=== PATIENT | male | born 1990 | race Caucasian/White ===

== ENCOUNTER 2018-12-27 23:27 | Emergency (ER) | payer OTHER ==
[~2018-12-27] VITALS: Ht 177.8 cm; Wt 74.8 kg
--- NOTE | 2018-12-27 23:32 | ED.ADGEN ---
Past History Past Medical History: Anxiety, Pancreatitis Adult General Chief Complaint Chief Complaint ".. I have an anxiety disorder.. and hx of pancreatitis.. but anyway... I had some chest pain starting about 9:45.. but it got worse ... about 1:00.. and thought it was just anxiety.. but it never went away.. so I came in to get checked.... It seems to be worse with deep breaths... 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 Onset of pain 09:45. rated 4 -5 . It A sig got worse until about 1300 hrs it peaked 8/10 and has persisted with deep breaths and cough. Pt. currently rates pain 4/10. Pt. denies any trauma. Patient denies any fever or chills. Patient denies any travel or specific ill contacts. Patient denies history of pulmonary embolisms or DVTs. Patient denies any family history of pulmonary embolisms and DVTs or coagulopathy. Patient does not smoke. Pain is reproducible with deep breaths and cough. Patient has had a previous history of pancreatitis inherited defect. Patient denies any specific history of elevated lipids or cholesterol. Hx ADHD- and take meds for in to help he focus on his school work. Pt. has hx Generalized anxiety disorder. Review of Systems Review of Systems Constitutional: Denies fever or chills [] Eyes: Denies change in visual acuity, redness, or eye pain [] HENT: Denies nasal congestion or sore throat [] Respiratory: Denies cough or shortness of breath [] Cardiovascular: No additional information not addressed in HPI [] GI: Denies abdominal pain, nausea, vomiting, bloody stools or diarrhea [] : Denies dysuria or hematuria [] Musculoskeletal: Denies back pain or joint pain [] Integument: Denies rash or skin lesions [] Neurologic: Denies headache, focal weakness or sensory changes [] Endocrine: Denies polyuria or polydipsia [] All other systems were reviewed and found to be within normal limits, except as documented in this note. Family History Family History Pancreatitis Current Medications Current Medications Current Medications Medications (Trade) Dose Ordered Sig/Chelsey Start Time Stop Time Status Last Admin Dose Admin Aspirin (Children'S Aspirin) 324 mg 1X ONCE 12/28/18 00:00 12/28/18 00:01 DC 12/27/18 23:54 324 MG Ketorolac Tromethamine (Toradol 30mg Vial) 30 mg 1X ONCE 12/28/18 01:15 12/28/18 01:16 DC 12/28/18 01:22 30 MG Lactated Ringer's 1,000 ml @ 1,000 mls/hr Q1H 12/28/18 00:00 12/28/18 00:59 DC 12/27/18 23:54 1,000 MLS/HR Lorazepam (Ativan) 1 mg 1X ONCE 12/28/18 02:00 12/28/18 02:12 DC 12/28/18 01:57 1 MG Methylprednisolone Sodium Succinate (SOLU-Medrol 125MG VIAL) 125 mg 1X ONCE 12/28/18 01:15 12/28/18 01:16 DC 12/28/18 01:22 125 MG Allergies Allergies Allergies Coded Allergies Type Severity Reaction Last Updated Verified nickel Allergy Intermediate 12/27/18 Yes Physical Exam Physical Exam Constitutional: Well developed, well nourished, moderate acute distress, non- toxic appearance. [] HENT: Normocephalic, atraumatic, bilateral external ears normal, oropharynx moist, no oral exudates, nose normal. [] Eyes: PERRLA, EOMI, conjunctiva normal, no discharge. [] Neck: Normal range of motion, no tenderness, supple, no stridor. [] Cardiovascular:Heart rate regular rhythm, no murmur [] Lungs & Thorax: Bilateral breath sounds equal apex on auscultation [] Abdomen: Bowel sounds normal, soft, no tenderness, no masses, no pulsatile masses. [] Skin: Warm, dry, no erythema, no rash. [] Back: No tenderness, no CVA tenderness. [] Extremities: No tenderness, no cyanosis, no clubbing, ROM intact, no edema. [] No cording appreciated Neurologic: Alert and oriented X 3, normal motor function, normal sensory function, no focal deficits noted. [] Psychologic: Affect anxious, judgement normal, mood normal. [] Current Patient Data Vital Signs Vital Signs Date Time Temp Pulse Resp B/P (MAP) Pulse Ox O2 Delivery O2 Flow Rate FiO2 7/21/19 01:29 69 15 126/69 (88) 98 Room Air 12/27/18 23:27 98.6 Lab Results Laboratory Tests Test 12/27/18 23:45 White Blood Count 9.4 x10^3/uL (4.0-11.0) Red Blood Count 5.33 x10^6/uL (4.30-5.70) Hemoglobin 15.9 g/dL (13.0-17.5) Hematocrit 47.0 % (39.0-53.0) Mean Corpuscular Volume 88 fL (79-100) Mean Corpuscular Hemoglobin 30 pg (25-35) Mean Corpuscular Hemoglobin Concent 34 g/dL (31-37) Red Cell Distribution Width 12.8 % (11.5-14.5) Platelet Count 244 x10^3/uL (140-400) Neutrophils (%) (Auto) 59 % (31-73) Lymphocytes (%) (Auto) 29 % (24-48) Monocytes (%) (Auto) 10 % (0-9) H Eosinophils (%) (Auto) 2 % (0-3) Basophils (%) (Auto) 1 % (0-3) Neutrophils # (Auto) 5.5 x10^3uL (1.8-7.7) Lymphocytes # (Auto) 2.7 x10^3/uL (1.0-4.8) Monocytes # (Auto) 0.9 x10^3/uL (0.0-1.1) Eosinophils # (Auto) 0.2 x10^3/uL (0.0-0.7) Basophils # (Auto) 0.1 x10^3/uL (0.0-0.2) Prothrombin Time 10.6 SEC (9.4-11.4) Prothrombin Time INR 1.0 (0.9-1.1) PTT 26 SEC (23-33) D-Dimer (Susan) < 0.19 mg/L (0.00-0.50) Urine Collection Type Unknown Urine Color Candace Urine Clarity Clear Urine pH 7.0 Urine Specific [place] 1.015 Urine Protein Neg (NEG-TRACE) Urine Glucose (UA) Neg mg/dL (NEG) Urine Ketones (Stick) Neg mg/dL (NEG) Urine Blood Neg (NEG) Urine Nitrite Neg (NEG) Urine Bilirubin Neg (NEG) Urine Urobilinogen Dipstick 0.2 mg/dL (0.2 mg/dL) Urine Leukocyte Esterase Neg (NEG) Urine RBC 0 /HPF (0-2) Urine WBC 0 /HPF (0-4) Urine Squamous Epithelial Cells Occ /LPF Urine Bacteria 0 /HPF (0-FEW) Sodium Level 139 mmol/L (136-145) Potassium Level 3.8 mmol/L (3.5-5.1) Chloride Level 102 mmol/L (98-107) Carbon Dioxide Level 29 mmol/L (21-32) Anion Gap 8 (6-14) Blood Urea Nitrogen 16 mg/dL (8-26) Creatinine 1.0 mg/dL (0.7-1.3) Estimated GFR (Cockcroft-Gault) 88.3 Glucose Level 102 mg/dL (70-99) H Calcium Level 9.8 mg/dL (8.5-10.1) Magnesium Level 2.1 mg/dL (1.8-2.4) Total Bilirubin 1.7 mg/dL (0.2-1.0) H Direct Bilirubin 0.3 mg/dL (0.0-0.2) H Aspartate Amino Transferase (AST) 26 U/L (15-37) Alanine Aminotransferase (ALT) 26 U/L (16-63) Alkaline Phosphatase 66 U/L (46-116) Creatine Kinase 75 U/L (39-308) Troponin I Quantitative < 0.017 ng/mL (0-0.055) CF-Zjh-J-Type Natriuretic Peptide 19 pg/mL (0-124) Total Protein 7.3 g/dL (6.4-8.2) Albumin 4.2 g/dL (3.4-5.0) Amylase Level 67 U/L (25-115) Lipase 161 U/L (73-393) Urine Opiates Screen Neg (NEG) Urine Methadone Screen Neg (NEG) Urine Barbiturates Neg (NEG) Urine Phencyclidine Screen Neg (NEG) Urine Amphetamine/Methamphetamine Neg (NEG) Urine Benzodiazepines Screen Neg (NEG) Urine Cocaine Screen Neg (NEG) Urine Cannabinoids Screen Neg (NEG) Urine Ethyl Alcohol Neg (NEG) EKG EKG I interpretation EKG shows a sinus rhythm at 83 bpm. Some nonspecific contour changes anterior septal leads. But no findings acute STEMI with contralateral changes.[] Radiology/Procedures Radiology/Procedures I interpretation of chest xray shows no acute cardiopulmonary findings[] Course & Med Decision Making Course & Med Decision Making Pertinent Labs and Imaging studies reviewed. (See chart for details) Pt to take a daily aspirin. Patient take Tylenol and ibuprofen for pain. Patient follow-up primary care. Patient return if any concerns. Pt. get out pt. stress test. [] Final Impression Final Impression 1. Chest Pain[]-pleuritic- ( Suspect Viral) 2. Mild elevation in monocytes 3. Mild elevation of bilirubin T=1.7, InD 0.3 Dragon Disclaimer Dragon Disclaimer This electronic medical record was generated, in whole or in part, using a voice recognition dictation system. Discharge Summary Visit Information Final Diagnosis Problems Medical Problems: (1) Chest pain Status: Acute (2) Pleurisy Status: Acute Brief Hospital Course Allergies Allergies Coded Allergies Type Severity Reaction Last Updated Verified nickel Allergy Intermediate 12/27/18 Yes Vital Signs Vital Signs Date Time Temp Pulse Resp B/P (MAP) Pulse Ox O2 Delivery O2 Flow Rate FiO2 12/28/18 01:29 69 15 126/69 (88) 98 Room Air 12/27/18 23:27 98.6 Lab Results Laboratory Tests Test 12/27/18 23:45 White Blood Count 9.4 x10^3/uL (4.0-11.0) Red Blood Count 5.33 x10^6/uL (4.30-5.70) Hemoglobin 15.9 g/dL (13.0-17.5) Hematocrit 47.0 % (39.0-53.0) Mean Corpuscular Volume 88 fL (79-100) Mean Corpuscular Hemoglobin 30 pg (25-35) Mean Corpuscular Hemoglobin Concent 34 g/dL (31-37) Red Cell Distribution Width 12.8 % (11.5-14.5) Platelet Count 244 x10^3/uL (140-400) Neutrophils (%) (Auto) 59 % (31-73) Lymphocytes (%) (Auto) 29 % (24-48) Monocytes (%) (Auto) 10 % (0-9) Eosinophils (%) (Auto) 2 % (0-3) Basophils (%) (Auto) 1 % (0-3) Neutrophils # (Auto) 5.5 x10^3uL (1.8-7.7) Lymphocytes # (Auto) 2.7 x10^3/uL (1.0-4.8) Monocytes # (Auto) 0.9 x10^3/uL (0.0-1.1) Eosinophils # (Auto) 0.2 x10^3/uL (0.0-0.7) Basophils # (Auto) 0.1 x10^3/uL (0.0-0.2) Prothrombin Time 10.6 SEC (9.4-11.4) Prothromb Time International Ratio 1.0 (0.9-1.1) Activated Partial Thromboplast Time 26 SEC (23-33) D-Dimer (Susan) < 0.19 mg/L (0.00-0.50) Urine Collection Type Unknown Urine Color Candace Urine Clarity Clear Urine pH 7.0 Urine Specific [place] 1.015 Urine Protein Neg (NEG-TRACE) Urine Glucose (UA) Neg mg/dL (NEG) Urine Ketones (Stick) Neg mg/dL (NEG) Urine Blood Neg (NEG) Urine Nitrite Neg (NEG) Urine Bilirubin Neg (NEG) Urine Urobilinogen Dipstick 0.2 mg/dL (0.2 mg/dL) Urine Leukocyte Esterase Neg (NEG) Urine RBC 0 /HPF (0-2) Urine WBC 0 /HPF (0-4) Urine Squamous Epithelial Cells Occ /LPF Urine Bacteria 0 /HPF (0-FEW) Sodium Level 139 mmol/L (136-145) Potassium Level 3.8 mmol/L (3.5-5.1) Chloride Level 102 mmol/L (98-107) Carbon Dioxide Level 29 mmol/L (21-32) Anion Gap 8 (6-14) Blood Urea Nitrogen 16 mg/dL (8-26) Creatinine 1.0 mg/dL (0.7-1.3) Estimated GFR (Cockcroft-Gault) 88.3 Glucose Level 102 mg/dL (70-99) Calcium Level 9.8 mg/dL (8.5-10.1) Magnesium Level 2.1 mg/dL (1.8-2.4) Total Bilirubin 1.7 mg/dL (0.2-1.0) Direct Bilirubin 0.3 mg/dL (0.0-0.2) Aspartate Amino Transf (AST/SGOT) 26 U/L (15-37) Alanine Aminotransferase (ALT/SGPT) 26 U/L (16-63) Alkaline Phosphatase 66 U/L (46-116) Creatine Kinase 75 U/L (39-308) Troponin I Quantitative < 0.017 ng/mL (0-0.055) CH-Blu-U-Type Natriuretic Peptide 19 pg/mL (0-124) Total Protein 7.3 g/dL (6.4-8.2) Albumin 4.2 g/dL (3.4-5.0) Amylase Level 67 U/L (25-115) Lipase 161 U/L (73-393) Urine Opiates Screen Neg (NEG) Urine Methadone Screen Neg (NEG) Urine Barbiturates Neg (NEG) Urine Phencyclidine Screen Neg (NEG) Urine Amphetamine/Methamphetamine Neg (NEG) Urine Benzodiazepines Screen Neg (NEG) Urine Cocaine Screen Neg (NEG) Urine Cannabinoids Screen Neg (NEG) Urine Ethyl Alcohol Neg (NEG) Brief Hospital Course Mr. Barnes is a 28 old male who presented with pleuritic chest pain all day. Discharge Information Condition at Discharge: Improved, Stable Disposition/Orders: D/C to Home Dischare Medications Current Medications Aspirin (Children'S Aspirin) 324 mg 1X ONCE PO Last administered on 12/27/18at 23:54; Admin Dose 324 MG; Start 12/28/18 at 00:00; Stop 12/28/18 at 00:01; Sta tus DC Lactated Ringer's 1,000 ml @ 1,000 mls/hr Q1H IV Last administered on 12/27/18at 23:54; Admin Dose 1,000 MLS/HR; Start 12/28/18 at 00:00; Stop 12/28/18 at 00:59; Status DC Ketorolac Tromethamine (Toradol 30mg Vial) 30 mg 1X ONCE IV Last administered on 12/28/18at 01:22; Admin Dose 30 MG; Start 12/28/18 at 01:15; Stop 12/28/18 at 01:16; Status DC Methylprednisolone Sodium Succinate (SOLU-Medrol 125MG VIAL) 125 mg 1X ONCE IV Last administered on 12/28/18at 01:22; Admin Dose 125 MG; Start 12/28/18 at 01:15; Stop 12/28/18 at 01:16; Status DC Lorazepam (Ativan) 1 mg 1X ONCE PO Last administered on 12/28/18at 01:57; Admin Dose 1 MG; Start 12/28/18 at 02:00; Stop 12/28/18 at 02:12; Status DC Dragon Disclaimer This chart was dictated in whole or in part using Voice Recognition software in a busy, high-work load, and often noisy Emergency Department environment. It may contain unintended and wholly unrecognized errors or omissions. ANGELINA CRUZ MD Dec 27, 2018 23:32
[2018-12-28] MEDS ORDERED: ASPIRIN 81 MG TAB.CHEW PO ONE
[2018-12-28] MEDS ORDERED: IV RINGERS SOLUTION,LACTATED 1,000 ML IV SCH
[2018-12-28 00:01] LABS: BASO # 0.1 x10^3/uL (0.0-0.2); BASO % 1 % (0-3); EOS # 0.2 x10^3/uL (0.0-0.7); EOS % 2 % (0-3); HEMOGLOBIN 15.9 g/dL (13.0-17.5); LYMPH # 2.7 x10^3/uL (1.0-4.8); LYMPH % 29 % (24-48); MEAN CORPUSCULAR HEMOGLOBIN 30 pg (25-35); MEAN CORPUSCULAR HGB CONC 34 g/dL (31-37); MEAN CORPUSCULAR VOLUME 88 fL (79-100); MONO # 0.9 x10^3/uL (0.0-1.1); MONO % 10 % (0-9); NEUT # 5.5 x10^3uL (1.8-7.7); NEUT % 59 % (31-73); PLATELET COUNT 244 x10^3/uL (140-400); RED BLOOD COUNT 5.33 x10^6/uL (4.30-5.70); RED CELL DISTRIBUTION WIDTH 12.8 % (11.5-14.5); WHITE BLOOD COUNT 9.4 x10^3/uL (4.0-11.0)
[2018-12-28 00:04] LABS: BACTERIA,URINE 0 /HPF (0-FEW); BILIRUBIN,URINE NEG (NEG); CLARITY,URINE CLEAR; COLOR,URINE AMBER; GLUCOSE,URINE NEG (NEG); NITRITE,URINE NEG (NEG); RBC,URINE 0 /HPF (0-2); SQUAMOUS EPITHELIAL CELL,UR OCC /LPF; UROBILINOGEN,URINE 0.2 mg/dL (0.2 mg/dL); WBC,URINE 0 /HPF (0-4)
[2018-12-28 00:27] LABS: ALBUMIN 4.2 g/dL (3.4-5.0); CALCIUM 9.8 mg/dL (8.5-10.1); TOTAL PROTEIN 7.3 g/dL (6.4-8.2)
[2018-12-28 00:28] LABS: DIRECT BILIRUBIN 0.3 mg/dL (0.0-0.2); GFR 88.3; MAGNESIUM 2.1 mg/dL (1.8-2.4); POTASSIUM 3.8 mmol/L (3.5-5.1); TOTAL BILIRUBIN 1.7 mg/dL (0.2-1.0)
[2018-12-28 00:30] LABS: AMPHETAMINE/METHAMPHETAMINE NEG (NEG); BARBITURATES NEG (NEG); BENZODIAZEPINES NEG (NEG); COCAINE NEG (NEG)
[2018-12-28 00:31] LABS: CANNABINOIDS NEG (NEG); METHADONE NEG (NEG); OPIATES NEG (NEG); PHENCYCLIDINE NEG (NEG)
[2018-12-28] MEDS ORDERED: methylPREDNISolone SOD SUCC PF 125 MG/2 ML VIAL. IV ONE (01:15)
[2018-12-28] MEDS ORDERED: KETOROLAC 30 MG/ML VIAL. IV ONE (01:15)
[2018-12-28 01:29] VITALS: BP 126/69
[2018-12-28] MEDS ORDERED: LORazepam 1 MG TABLET PO ONE (02:00)
--- NOTE | 2018-12-28 05:37 | RAD ---
CHEST PA LATERAL History: Chest pain Comparison: None. Findings: The cardiomediastinal silhouette is normal. Pulmonary vasculature is normal. The lungs are clear. No pleural effusion or pneumothorax is seen. There is no acute bone abnormality. IMPRESSION: No acute cardiopulmonary process. Electronically signed by: Armin Worthington MD (12/28/2018 5:34 AM) [id number]
[2018-12-28 10:21] LABS: THYROID STIM HORMONE (TSH) 2.534 uIU/mL (0.358-3.740)
--- NOTE | 2018-12-28 14:22 | EKG ---
[address] [id number] Test Date: 2018-12-27 Test Time: 23:38:09 Pat Name: LAURA THOMPSON Department: Room: Gender: M Customer Trainer: ELIANE : 1990 Requested By: ANGELINA CRUZ Order Number: [id number] Reading MD: Measurements Intervals [place] Rate: 83 P: 0 CA: 166 QRS: 74 QRSD: 80 T: 21 QT: 344 QTc: 405 Interpretive Statements SINUS RHYTHM QRS(T) CONTOUR ABNORMALITY CONSIDER ANTEROSEPTAL MYOCARDIAL DAMAGE POSSIBLY ABNORMAL ECG RI6.01 No previous ECG available for comparison
== END 2018-12-28 02:00 | disposition home or self-care (01) ==
LOC: ER 23:27
DX: R09.1 Pleurisy (principal); D72.821 Monocytosis (symptomatic); E80.7 Disorder of bilirubin metabolism, unspecified; F41.9 Anxiety disorder, unspecified; Z79.82 Long term (current) use of aspirin; Z88.8 Allergy status to other drugs, medicaments and biological substances
CPT/HCPCS: 36415; 71046; 80048; 80061; 80076; 80307; 81001; 82150; 82550; 83690; 83735; 83880; 84443; 84484; 85025; 85379; 85610; 85730; 86705; 86709; 86803; 87340; 93005; 96374; 96375; 99285; J1885; J2930; J7120